=== PATIENT | male | born 1955 | race African-American/Black ===

== ENCOUNTER 2017-09-20 01:11 | Emergency (ER) | payer MEDICAID ==
[~2017-09-20] VITALS: Ht 170.2 cm; Wt 93.0 kg
[2017-09-20 01:35] VITALS: BP 113/82
[2017-09-20] MEDS ORDERED: LIDOCAINE VISCOUS 2% 15ML UD PO ONE (04:45)
[2017-09-20] MEDS ORDERED: cefTRIAXone SOD 1,000 MG VL IM ONE (04:45)
[2017-09-20] MEDS ORDERED: HYDROcodone-ACET 10/325MG TAB PO ONE (04:45)
[2017-09-20] MEDS ORDERED: LIDOCAINE 2% (LOCAL ANESTH.) PF 5ml SDV ONE (04:58)
[2017-09-20] MEDS ORDERED: BENZOCAINE (DENTAL) 20 % SPRAY 60ML MT ONE (05:00)
== END 2017-09-20 05:37 | disposition home or self-care (01) ==
LOC: ER 01:20
DX: K04.7 Periapical abscess without sinus (principal); K12.2 Cellulitis and abscess of mouth
CPT/HCPCS: 40800; 96372; 99284; J0696; J2001

== ENCOUNTER 2018-07-01 07:29 | Inpatient (IN) | payer MEDICAID | END 2018-07-02 17:27 | disposition home or self-care (01) | LOC: ER 07:29 → OVERFLOW 09:41 → CENTRAL 10:40 | DX: K52.9 Noninfective gastroenteritis and colitis, unspecified (principal) ==

== ENCOUNTER 2022-07-21 21:09 | Emergency (ER) | payer OTHER, MEDICAID ==
[~2022-07-21] VITALS: Ht 170.2 cm; Wt 100.0 kg
[2022-07-21 21:09] VITALS: BP 134/89
[~2022-07-21 21:09] MED LIST: LEVO500T31 PO; TAMS0.4C36 PO
[2022-07-22] MEDS ORDERED: NAP500T PO (04:05)
[2022-07-22] MEDS ORDERED: CYCL-837 PO (04:05)
== END 2022-07-22 04:11 | disposition home or self-care (01) ==
LOC: ER 21:12
DX: S46.912A Strain of unspecified muscle, fascia and tendon at shoulder and upper arm level, left arm, initial encounter (principal); S46.911A Strain of unspecified muscle, fascia and tendon at shoulder and upper arm level, right arm, initial encounter; S39.012A Strain of muscle, fascia and tendon of lower back, initial encounter; S16.1XXA Strain of muscle, fascia and tendon at neck level, initial encounter; R51.9 Headache, unspecified; K21.9 Gastro-esophageal reflux disease without esophagitis; Z79.899 Other long term (current) drug therapy; Z87.891 Personal history of nicotine dependence; Z90.89 Acquired absence of other organs; W01.0XXA Fall on same level from slipping, tripping and stumbling without subsequent striking against object, initial encounter; Y93.89 Activity, other specified; Y92.89 Other specified places as the place of occurrence of the external cause; Y99.8 Other external cause status
CPT/HCPCS: 70450; 72125; 72131; 73030